=== PATIENT | female | born 1990 | race American Indian/Alaskan Native ===

== ENCOUNTER 2019-10-16 18:40 | Emergency (ER) | payer SELFPAY ==
[2019-10-16 20:47] VITALS: BP 148/92
== END 2019-10-16 21:23 | disposition left against medical advice (07) ==
LOC: ED 18:40
DX: M79.671 Pain in right foot (principal); Z53.21 Procedure and treatment not carried out due to patient leaving prior to being seen by health care provider

== ENCOUNTER 2021-02-23 21:24 | Emergency (ER) | payer SELFPAY | END 2021-02-24 01:14 | disposition left against medical advice (07) | LOC: ED 21:24 | DX: N89.8 Other specified noninflammatory disorders of vagina (principal); Z53.21 Procedure and treatment not carried out due to patient leaving prior to being seen by health care provider ==

== ENCOUNTER 2022-01-28 05:18 | Emergency (ER) | payer SELFPAY ==
[2022-01-28 05:28] VITALS: BP 141/81
--- NOTE | 2022-01-28 10:25 | XRay Report ---
CHEST 2 VIEWS INDICATION: Pleuritis. COMPARISON: None. FINDINGS: Support devices: None. Heart: Within normal limits. Lungs/Pleura: No acute air space or interstitial disease. No significant pleural effusion. IMPRESSION: No acute findings. Signer Name: Tim Parks MD Signed: 01/28/2022 10:21 AM Workstation Name: [id number]
== END 2022-01-28 14:49 | disposition left against medical advice (07) ==
LOC: ED 05:18
DX: R10.9 Unspecified abdominal pain (principal); Z53.21 Procedure and treatment not carried out due to patient leaving prior to being seen by health care provider
CPT/HCPCS: 71046